=== PATIENT | male | born 1980 | race Caucasian/White ===

== ENCOUNTER 2024-08-27 10:35 | Day surgery (SDC) | payer OTHER, SELFPAY ==
[2024-08-22 11:19] VITALS: BMI 37.6
[2024-08-27] VITALS (7 sets, daily range): BP systolic 106–148; BP diastolic 64–93; PULSE 73–98; RESP 13–20; TEMP 36.4–36.6; O2SAT 90–98; BMI 38.7
[2024-08-27] MEDS: LACTATED RINGERS 1,000 ML 42 ML IV (11:19)
[2024-08-27] MEDS: ACETAMINOPHEN 325 MG TABLET 975 MG PO (11:29)
--- NOTE | 2024-08-27 12:19 | PM.PREOP ---
Pre-operative Note COVID-19 COVID-19 status: Not tested Interval Note History & Physical reviewed/Exam performed by Physician: Yes Changes to H&P: No ASA Class (for procedural sedation): II
[2024-08-27] MEDS: CEFAZOLIN 2 GM/100 ML PREMIX 100 ML IV (12:55)
--- NOTE | 2024-08-27 13:11 | SUR.OPER ---
Supine on padded OR bed and pink pad, head on pillow, arms padded and tucked at sides, legs uncrossed, safety belt at thigh, tape over blanket over lower legs .
[2024-08-27] MEDS: BUPIVACAINE 0.5% W/ EPI (PF) 30 ML VIAL INJ (13:22)
[2024-08-27] MEDS: CEFAZOLIN VIAL 1 GM in SODIUM CHLORIDE 0.9% 100 ML IV (13:32)
--- NOTE | 2024-08-27 15:14 | P.OP_ITS ---
Operative Date/Time/Diagnoses Date of procedure: 08/27/24 Time of procedure: 15:14 Pre-op diagnosis: Right inguinal hernia Post-op diagnosis: other (Bilateral inguinal hernia) Procedure & Clinicians Procedure: Laparoscopic bilateral inguinal hernia repair with mesh Same procedure as scheduled: Yes Surgeon: Pawel Mckenzie Anesthesia Type: General Operative Notes Procedure in detail: Surgeon: Pawel Mckenzie MD The patient was given preoperative antibiotics. The patient was brought to the operating room, placed on the table in the supine position with the arms tucked and general anesthesia was induced. The abdomen was prepped and draped in the usual fashion. A time-out was performed. A 1 cm supraumbilical incision was created and dissection was carried down to the fascia. The fascia was scored transversely with cautery. A Peon clamp was used to ortega the peritoneum. The Michael port was placed and the abdomen was insufflated to 15 mmHg. The camera was inserted, there was no evidence of any injury from the entry. 5 mm ports were placed under direct vision in the mid left and mid right abdomen. The patient was positioned in steep Trendelenburg. We started on the right side. We created a peritoneal flap. The peritoneum was dissected off the right cord structures revealing small indirect defect. A large right Bard mesh was brought in and placed over the defect with the medial edge against Seng's ligament. We then closed the peritoneal flap with a running 3-0 barbed suture. Next we turned our attention to the left side. There appeared to be an indirect defect containing a tongue of omentum. The peritoneum was dissected off the left cord structures and the incarcerated tongue of omentum was freed. A large left Bard mesh was brought in and placed over the defect with the medial edge against Seng's ligament. We then closed the peritoneal flap with a running 3- 0 barbed suture. We took one last look around the abdomen and saw no other abnormalities. The suture was removed and accounted for. The 5 mm ports were removed under direct vision. The abdomen was desufflated. The Michael port was removed. Additional local was injected into the fascia and the fascial incision was closed with 2 interrupted 0 Vicryl sutures. The skin incisions were closed with 4 Monocryl, Steri-Strips and Band-Aids. EBL: 10 mL Post-operative Condition: stable Disposition: PACU
== END 2024-08-27 16:02 | disposition home or self-care (01) ==
PROVIDERS: PCP Family Medicine; Referring Provider Surgery; Visit Provider Surgery
PROC: 0YQ64ZZ Repair Left Inguinal Region, Percutaneous Endoscopic Approach (ICD-10-PCS; CPT 49650; principal; 2024-08-27 12:45)
DX: K40.00 Bilateral inguinal hernia, with obstruction, without gangrene, not specified as recurrent (principal)
CPT/HCPCS: 49650; J0690; J1100; J1885; J2250; J2405; J2704; J3010